=== PATIENT | male | born 1990 | race Caucasian/White ===

== ENCOUNTER 2019-10-23 01:51 | Emergency (ER) | payer MEDICAID ==
[~2019-10-23] VITALS: Ht 177.8 cm; Wt 59.1 kg
[~2019-10-23 01:51] MED LIST: ESOM40CA49 PO; IBUP-1984 PO; INSU100V30 SQ; LANTUS SQ; OMEP40CA13 PO
[2019-10-23 02:10] VITALS: BP 141/95
[2019-10-23] MEDS ORDERED: normal saline 1000ML IV soln IVB ONE (02:15)
[2019-10-23 02:25] LABS: BASOPHILS # (AUTO) 0.1 X10'3 (0-0.2); BASOPHILS % (AUTO) 0.9 % (0-1); EOSINOPHILS # (AUTO) 0.1 X10'3 (0-0.9); EOSINOPHILS % (AUTO) 1.1 % (0-6); HEMATOCRIT 41.4 % (42.0-52.0); HEMOGLOBIN 14.3 g/dl (14.0-17.9); LYMPHOCYTES # (AUTO) 2.2 X10'3 (1.1-4.8); LYMPHOCYTES % (AUTO) 22.3 % (21-51); MEAN CORPUSCULAR HEMOGLOBIN 31.4 PG (27.0-31.0); MEAN CORPUSCULAR HGB CONC 34.6 g/dL (33.0-36.5); MEAN CORPUSCULAR VOLUME 90.7 FL (78-98); MEAN PLATELET VOLUME 7.8 FL (7.4-10.4); MONOCYTES % (AUTO) 10.2 % (2-12); NEUTROPHILS # (AUTO) 6.5 X10'3 (1.8-7.7); NEUTROPHILS % (AUTO) 65.5 % (42-75); PLATELET COUNT 286 X10'3 (140-440); RED BLOOD COUNT 4.57 X10'6 (4.70-6.10); WHITE BLOOD COUNT 9.9 X10'3 (4.5-11.0)
[2019-10-23 02:51] LABS: ALANINE AMINOTRANSFERASE 21 U/L (12-78); ALBUMIN 3.8 G/DL (3.4-5.0); ALKALINE PHOSPHATASE 236 IU/L (46-116); ANION GAP 13 (8-16); ASPARTATE AMINO TRANSFERASE 26 U/L (10-37); BILIRUBIN,TOTAL 0.5 MG/DL (0.1-1.0); BLOOD UREA NITROGEN 15 MG/DL (7-18); BUN/CREATININE RATIO 20.3 (5.4-32.0); CALCIUM 9.2 MG/DL (8.5-10.1); CHLORIDE 93 MMOL/L (99-107); CREATININE 0.74 MG/DL (0.60-1.10); GLUCOSE 436 MG/DL (70-104); POTASSIUM 4.3 MMOL/L (3.5-5.1); SODIUM 132 MMOL/L (135-145); TOTAL PROTEIN 7.5 G/DL (6.4-8.2); eGFR > 90 ML/MIN
[2019-10-23 02:54] LABS: ETHANOL < 0.010 GM/DL (0.0-0.010)
[2019-10-23] MEDS ORDERED: insulin regular, human 10 units/0.1 ml syringe IV ONE (03:20)
[2019-10-23 03:43] LABS: URINE AMPHETAMINE SCREEN POSITIVE (Neg); URINE BARBITUATE SCREEN NEGATIVE (Neg); URINE BENZODIAZEPINES SCREEN NEGATIVE (Neg); URINE CANNABINOID SCREEN NEGATIVE (Neg); URINE COCAINE SCREEN NEGATIVE (Neg); URINE METHADONE SCREEN NEGATIVE (Neg); URINE OPIATE SCREEN NEGATIVE (Neg); URINE PHENCYCLIDINE SCREEN NEGATIVE (Neg)
--- NOTE | 2019-10-23 07:14 | NUR ---
Pt escorted from ER bed 15 to ER overflow bed 23.
[2019-10-23] MEDS ORDERED: dextrose ORAL solution 15 GM/59 ML bottle PO PRN ×2 (07:35)
[2019-10-23] MEDS ORDERED: MESSAGE TO PHARMACY PO ONE ×2 (07:35)
[2019-10-23] MEDS ORDERED: dextrose 50%-water 50ml dispensing syringe IV PRN ×2 (07:35)
[2019-10-23] MEDS ORDERED: glucagon, human recombinant 1mg kit SUBCUT PRN (07:35)
[2019-10-23] MEDS ORDERED: insulin Lispro (HumaLOG) vial - multi-dose SQ SCH (07:35)
--- NOTE | 2019-10-23 08:10 | NUR ---
Patient sitting up and eating. No distress observed. Continue to monitor.
--- NOTE | 2019-10-23 09:46 | NUR ---
Breaking primary RN, pt is supine in bed eyes closed, regular breathing present, no anxiety observed
[2019-10-23] MEDS ORDERED: insulin glargine (Lantus) pen - multi-dose SQ SCH (21:00)
== END 2019-10-23 12:08 | disposition home or self-care (01) ==
LOC: ER 01:52
DX: F32.9 Major depressive disorder, single episode, unspecified (principal); E11.42 Type 2 diabetes mellitus with diabetic polyneuropathy; F17.200 Nicotine dependence, unspecified, uncomplicated; F15.90 Other stimulant use, unspecified, uncomplicated; Z87.442 Personal history of urinary calculi; Z56.0 Unemployment, unspecified; Z79.4 Long term (current) use of insulin; Z79.899 Other long term (current) drug therapy
CPT/HCPCS: 36415; 80053; 80305; 80320; 82948; 85025; 96372; 96374; 99284; J1815; J7030